=== PATIENT | female | born 1980 ===

== ENCOUNTER 2020-02-15 18:42 | Outpatient (REF) | payer BC, SELFPAY ==
[2020-02-18 02:33] LABS: COVID-19 RT-PCR Result NEGATIVE (Negative)
== END 2020-02-15 19:02 ==
LOC: NCHCN 18:42
PROVIDERS: Visit Provider Family Medicine
DX: Z11.59 Encounter for screening for other viral diseases (principal)
CPT/HCPCS: U0003